=== PATIENT | female | born 1935 | race Caucasian/White ===

== ENCOUNTER → 2016-05-22 | Outpatient (CLI) | payer MEDICARE, OTHER ==
[~2016-05-22] MED LIST: AMLO10TA2 PO; ASPI-611 PO; ATOR40TA64 PO; CALC-52 PO; CEPH500C2 PO; INSU100I5 SQ; INSU100V28 SQ; LABE200T PO
--- NOTE | 2016-05-22 08:25 | DI ---
EXAM: US RENAL DATE: 05/22/2016 12:00 AM SITE OF DICTATION: [place]. INDICATION: ITS.REASON: R10.9 UNSPECIFIED ABD PAIN; E11.9 Type 2 diabetes mellitus withou COMPARISON: None available. TECHNIQUE: Multiple real-time grayscale sonographic images were obtained of the right and left kidneys with color flow and spectral analysis. FINDINGS: The right kidney demonstrates normal corticomedullary differentiation and measures 9.9 x 5.4 x 5.2 cm. There is no right sided mass, calculus or hydronephrosis. The left kidney demonstrates normal corticomedullary differentiation and measures 9.8 x 5.7 x 5.4 cm. There is no left sided mass, calculus or hydronephrosis. IMPRESSION: Normal renal ultrasound. .
== END ==
LOC: IMA 07:51
PROVIDERS: ATTEND Family Medicine
DX: E11.9 Type 2 diabetes mellitus without complications (principal)